=== PATIENT | female | born 1975 | race American Indian/Alaskan Native ===

== ENCOUNTER 2019-09-11 22:12 | Emergency (ER) | payer OTHER, BC ==
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
[2019-09-11 22:49] VITALS: BP 118/80
--- NOTE | 2019-09-12 00:02 | XRay Report ---
RIGHT SHOULDER 3 VIEWS INDICATION: shoulder pain. COMPARISON: No relevant prior imaging study available. FINDINGS: No fracture or dislocation is seen. No soft tissue swelling. No degenerative changes. IMPRESSION: 1. No acute findings. Signer Name: Joshua Mckeon MD Signed: 09/11/2019 11:57 PM Workstation Name: [id number]
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
== END 2019-09-11 23:46 | disposition left against medical advice (07) ==
LOC: ED 22:12
DX: Z04.1 Encounter for examination and observation following transport accident (principal); Z53.21 Procedure and treatment not carried out due to patient leaving prior to being seen by health care provider